=== PATIENT | male | born 1960 | race Caucasian/White ===

== ENCOUNTER 2020-06-23 07:11 | Day surgery (SDC) | payer BC ==
[2020-06-23] MEDS ORDERED: Lidocaine 1% PF 2 ML SDV INJECT ONE (07:12)
[2020-06-23] MEDS ORDERED: Propofol 200 MG/20 ML SDV IV ONE (07:12)
[2020-06-23] MEDS ORDERED: Lactated Ringers 1,000 ML IV SCH (07:15)
[2020-06-23] MEDS ORDERED: Sodium Chloride 0.9% 10 ML Syringe FLUSH PRN (07:15)
--- NOTE | 2020-06-23 07:46 | PCM.SN.2 ---
- Free Text/Narrative Note: Pt examined and chart reviewed. No change to to H+P.
--- NOTE | 2020-06-23 08:46 | PCM.OPNOTE ---
- General Post-Op/Procedure Note Date of Surgery/Procedure: 06/23/20 Operative Procedure(s): c scope Findings: nl exam Pre Op Diagnosis: colon cancer screening Post-Op Diagnosis: nl study Anesthesia Technique: MAC Primary Surgeon: Lukasz Alexandra Anesthesia Provider: Sam Duncan Pathology: none Complications: None Condition: Good Free Text/Narrative:: see dictation #[id number]
--- NOTE | 2020-06-23 10:57 | OR ---
DATE OF OPERATION: 06/23/2020 SURGEON: Lukasz Alexandra MD PROCEDURE PERFORMED: Colonoscopy. PREOPERATIVE DIAGNOSIS: Need for colon cancer screening. POSTOPERATIVE DIAGNOSIS: Normal exam. INDICATIONS FOR PROCEDURE: This is a 60-year-old white male who presents for a screening colonoscopy. He was offered and accepted same. DESCRIPTION OF OPERATION: After an excellent IV sedation was administered, digital rectal exam was performed. No marked abnormality was noted. Flexible colonoscope was inserted and advanced to the cecum. Prep was excellent. The following findings were noted. Ascending colon, unremarkable. Transverse colon, unremarkable. Descending colon, unremarkable. Sigmoid and rectum, unremarkable. Colon was deflated. The scope was removed. The patient tolerated the procedure well. RECOMMENDATIONS: Repeat colonoscopy in 10 years. /[id number] /MODL
== END 2020-06-23 09:58 | disposition home or self-care (01) ==
LOC: FB.SDS 07:11
PROVIDERS: ATTEND Surgery
DX: Z12.11 Encounter for screening for malignant neoplasm of colon (principal); E11.9 Type 2 diabetes mellitus without complications; I10 Essential (primary) hypertension; F17.220 Nicotine dependence, chewing tobacco, uncomplicated; Z79.899 Other long term (current) drug therapy; Z88.0 Allergy status to penicillin; Z88.8 Allergy status to other drugs, medicaments and biological substances; Z79.84 Long term (current) use of oral hypoglycemic drugs
CPT/HCPCS: 00812-QZ; 82962; J2001; J2704; J7120